=== PATIENT | female | born 1940 ===

== ENCOUNTER 2020-10-28 12:54 | Outpatient (CLI) | payer OTHER ==
[~2020-10-28 12:54] MED LIST: AMBIEN10 MG; BACLOFEN20 MG; SYNTHROID75 MCG
== END 2020-10-28 18:00 | disposition home or self-care (01) ==
LOC: OFIC 805 12:54
PROVIDERS: ATTEND Otolaryngology
DX: H90.3 Sensorineural hearing loss, bilateral (principal); H61.23 Impacted cerumen, bilateral

== ENCOUNTER 2021-02-20 10:02 | Outpatient (CLI) | payer OTHER | END 2021-02-20 11:08 | disposition home or self-care (01) | LOC: OFIC 805 10:02 | PROVIDERS: ATTEND Otolaryngology | DX: H90.3 Sensorineural hearing loss, bilateral (principal) ==